=== PATIENT | female | born 2000 | race African-American/Black ===

== ENCOUNTER 2021-10-09 15:57 | Emergency (ER) | payer OTHER ==
[~2021-10-09] VITALS: Ht 157.5 cm; Wt 66.0 kg
[2021-10-09 16:03] VITALS: BP 150/87
[2021-10-09] MEDS ORDERED: ACETAMINOPHEN 325MG TABLET PO ONE (18:15)
[2021-10-09 19:21] LABS: BASOPHILS % 0.5 % (0.0-2.0); CHLORIDE 107 mEq/L (98-107); HEMATOCRIT. 38.5 % (36.0-48.0); HEMOGLOBIN. 12.3 g/dL (12.0-16.0); LYMPHOCYTES % 19.3 % (20.0-50.0); MEAN CORPUSCULAR HEMOGLOBIN 27.3 pg (28.0-32.0); MEAN CORPUSCULAR VOLUME 85.8 fL (81.0-99.0); MEAN PLATELET VOLUME 8.8 fl (7.4-10.4); MONOCYTES % 7.9 % (2.0-8.0); NEUTROPHILS % 71.3 % (40.0-76.0); PLATELET 319 x1000/uL (130-400); RED BLOOD CELL COUNT 4.49 mill/uL (4.2-5.4); RED CELL DISTRIBUTION WIDTH 14.7 % (11.6-14.6)
[2021-10-09 19:23] LABS: CLARITY URINE CLEAR (CLEAR); COLOR URINE YELLOW (YELLOW); KETONES URINE TRACE (NEGATIVE); LEUKOCYTE ESTERASE URINE 2+ (NEGATIVE); NITRITE URINE NEGATIVE (NEGATIVE); OCCULT BLOOD URINE NEGATIVE (NEGATIVE); PH URINE 6.5 (4.5-8.0); PROTEIN URINE NEGATIVE (NEGATIVE)
[2021-10-09 19:32] LABS: HCG SCREEN NEGATIVE
[2021-10-09] MEDS ORDERED: IBUP-2028 MT (20:19)
[2021-10-09] MEDS ORDERED: NITR-87 MT (20:19)
== END 2021-10-09 20:39 | disposition home or self-care (01) ==
LOC: ER 15:57
DX: R10.32 Left lower quadrant pain (principal); N39.0 Urinary tract infection, site not specified; J45.909 Unspecified asthma, uncomplicated; R51.9 Headache, unspecified; M54.2 Cervicalgia
CPT/HCPCS: 36415; 74176; 80053; 81003; 81025; 84703; 85025; 99284

== ENCOUNTER 2021-11-23 12:16 | Emergency (ER) | payer OTHER ==
[~2021-11-23] VITALS: Ht 157.5 cm; Wt 64.0 kg
[~2021-11-23 12:16] MED LIST: IBUP-2028 MT; NITR-87 MT
[2021-11-23 12:21] VITALS: BP 127/83
[2021-11-23] MEDS ORDERED: KETOROLAC 30MG/ML VIAL IV STA (13:03)
[2021-11-23] MEDS ORDERED: ONDANSETRON HCL 4MG/2ML INJ IV STA (13:03)
[2021-11-23] MEDS ORDERED: SODIUM CHLORIDE 0.9% 1,000 ML IV ONE (13:15)
[2021-11-23 13:56] LABS: CLARITY URINE CLEAR (CLEAR); COLOR URINE YELLOW (YELLOW); KETONES URINE TRACE (NEGATIVE); LEUKOCYTE ESTERASE URINE 2+ (NEGATIVE); NITRITE URINE NEGATIVE (NEGATIVE); OCCULT BLOOD URINE TRACE (NEGATIVE); PROTEIN URINE TRACE (NEGATIVE); SPECIFIC GRAVITY URINE 1.023 (1.005-1.030)
[2021-11-23 14:16] LABS: BASOPHILS % 0.8 % (0.0-2.0); EOSINOPHILS % 1.1 % (0.0-5.0); HEMATOCRIT. 36.9 % (36.0-48.0); HEMOGLOBIN. 12.2 g/dL (12.0-16.0); LYMPHOCYTES % 18.3 % (20.0-50.0); MEAN CORPUSCULAR HEMOGLOBIN 27.9 pg (28.0-32.0); MEAN CORPUSCULAR VOLUME 84.3 fL (81.0-99.0); MONOCYTES % 7.2 % (2.0-8.0); NEUTROPHILS % 72.6 % (40.0-76.0); PLATELET 356 x1000/uL (130-400); RED BLOOD CELL COUNT 4.38 mill/uL (4.2-5.4); RED CELL DISTRIBUTION WIDTH 15.7 % (11.6-14.6)
[2021-11-23 14:21] LABS: CHLORIDE 110 mEq/L (98-107)
[2021-11-23] MEDS ORDERED: CEFTRIAXONE 1 G PREMIX 50 ML IV NR (14:30)
[2021-11-23 14:37] LABS: HCG SCREEN NEGATIVE
[2021-11-23] MEDS ORDERED: CEPH500C2 MT (14:57)
== END 2021-11-23 15:53 | disposition home or self-care (01) ==
LOC: ER 12:16
DX: N10 Acute pyelonephritis (principal); R00.0 Tachycardia, unspecified; J45.909 Unspecified asthma, uncomplicated
CPT/HCPCS: 36415; 80053; 81003; 81025; 83690; 84703; 85025; 87086; 96361; 96365; 96375; 99284; J0696; J1885; J2405; J7030

== ENCOUNTER 2021-12-18 15:11 | Emergency (ER) | payer OTHER ==
[~2021-12-18] VITALS: Ht 160 cm; Wt 66.0 kg
[~2021-12-18 15:11] MED LIST changes: +CEPH500C2 MT
[2021-12-18 15:23] VITALS: BP 124/88
[2021-12-18] MEDS ORDERED: ACETAMINOPHEN 325MG TABLET PO ONE (18:30)
[2021-12-18] MEDS ORDERED: ACET-2708 MT (19:48)
== END 2021-12-18 20:11 | disposition home or self-care (01) ==
LOC: ER 15:11
DX: S06.0X9A Concussion with loss of consciousness of unspecified duration, initial encounter (principal); J45.909 Unspecified asthma, uncomplicated; Z13.9 Encounter for screening, unspecified; Y04.0XXA Assault by unarmed brawl or fight, initial encounter; Y93.89 Activity, other specified; Y92.89 Other specified places as the place of occurrence of the external cause; Y99.8 Other external cause status
CPT/HCPCS: 99284

== ENCOUNTER 2021-12-22 09:47 | Emergency (ER) | payer OTHER ==
[~2021-12-22 09:47] MED LIST changes: +ACET-2708 MT
== END 2021-12-22 10:11 | disposition home or self-care (01) ==
LOC: ER 09:47
DX: Z53.21 Procedure and treatment not carried out due to patient leaving prior to being seen by health care provider (principal)

== ENCOUNTER 2022-03-28 10:19 | Emergency (ER) | payer OTHER ==
[~2022-03-28] VITALS: Ht 162.6 cm; Wt 68.0 kg
[2022-03-28] MEDS ORDERED: ALBUTEROL (0.083%) 2.5MG/3ML NEB HHN STA (11:21)
[2022-03-28] MEDS ORDERED: PREDNISONE 20MG TABLET PO STA (11:21)
[2022-03-28] MEDS ORDERED: ALBU6.7H3 INH (12:04)
[2022-03-28] MEDS ORDERED: NEBU-270 MC (12:04)
[2022-03-28] MEDS ORDERED: P50 MT (12:04)
[2022-03-28] MEDS ORDERED: ALBU05 NEB (12:04)
[2022-03-28] MEDS ORDERED: ALBUTEROL (0.083%) 2.5MG/3ML NEB HHN NR (13:00)
[2022-03-28 13:47] VITALS: BP 136/76
== END 2022-03-28 13:51 | disposition home or self-care (01) ==
LOC: ER 10:19
DX: J45.909 Unspecified asthma, uncomplicated (principal); Z79.899 Other long term (current) drug therapy
CPT/HCPCS: 71045; 94640; 99283; J7512; Z7610

== ENCOUNTER 2022-07-02 23:55 | Emergency (ER) | payer OTHER ==
[~2022-07-02] VITALS: Ht 162.6 cm; Wt 63.5 kg
[~2022-07-02 23:55] MED LIST changes: +ALBU05 NEB; +ALBU6.7H3 INH; +NEBU-270 MC; +P50 MT
[2022-07-03 00:09] VITALS: BP 126/86
== END 2022-07-03 01:57 | disposition home or self-care (01) ==
LOC: ER 23:55
DX: F32.9 Major depressive disorder, single episode, unspecified (principal); J45.909 Unspecified asthma, uncomplicated; Z79.899 Other long term (current) drug therapy
CPT/HCPCS: 99281

== ENCOUNTER 2022-09-30 16:26 | Emergency (ER) | payer OTHER ==
[~2022-09-30] VITALS: Ht 162.6 cm; Wt 65.0 kg
[2022-09-30 16:32] VITALS: BP 117/66; PULSE 98; RESP 18; TEMP 98.6; O2SAT 99
[2022-09-30] MEDS ORDERED: IBUPROFEN 600MG TABLET PO ONE (17:15)
[2022-09-30] MEDS ORDERED: IBUP-2030 MT (18:48)
== END 2022-09-30 19:02 | disposition home or self-care (01) ==
LOC: ER 16:26
DX: M79.10 Myalgia, unspecified site (principal); R07.89 Other chest pain; J45.909 Unspecified asthma, uncomplicated
CPT/HCPCS: 99282

== ENCOUNTER 2022-11-16 12:28 | Emergency (ER) | payer OTHER ==
[~2022-11-16] VITALS: Ht 157.5 cm; Wt 58.0 kg
[~2022-11-16 12:28] MED LIST changes: +IBUP-2030 MT
[2022-11-16 12:36] VITALS: BP 120/74; PULSE 68; RESP 20; TEMP 98.6; O2SAT 100
[2022-11-16 13:40] LABS: BASOPHILS % 0.7 % (0.0-2.0); HEMATOCRIT. 38.2 % (36.0-48.0); HEMOGLOBIN. 12.3 g/dL (12.0-16.0); LYMPHOCYTES % 22.2 % (20.0-50.0); MEAN CORPUSCULAR HEMOGLOBIN 27.3 pg (28.0-32.0); MEAN CORPUSCULAR HGB CONC 32.2 g/dL (31.0-37.0); MEAN CORPUSCULAR VOLUME 84.9 fL (81.0-99.0); MEAN PLATELET VOLUME 8.7 fl (7.4-10.4); MONOCYTES % 6.4 % (2.0-8.0); NEUTROPHILS % 69.7 % (40.0-76.0); PLATELET 289 x1000/uL (130-400); RED CELL DISTRIBUTION WIDTH 14.2 % (11.6-14.6); WHITE BLOOD COUNT 8.3 x1000/uL (4.5-11.0)
[2022-11-16 13:49] LABS: CHLORIDE 107 mEq/L (98-107); INDEX HEMOLYSI 1 (1-3); INDEX ICTERIC 1 (1-4); INDEX LIPEMIC 1 (1-3); POTASSIUM 3.7 mEq/L (3.5-5.1); SODIUM 137 mEq/L (136-145)
[2022-11-16 13:57] LABS: ALANINE AMINOTRANSFERASE 14 IU/L (13-61); ALBUMIN 2.9 g/dL (3.4-5.0); ASPARTATE AMINOTRANSFERASE 14 IU/L (15-37); BILIRUBIN TOTAL 0.3 mg/dL (0.1-1.0); CARBON DIOXIDE 25 mEq/L (21-32); CREATININE 0.8 mg/dL (0.6-1.3); PROTEIN TOTAL 6.8 g/dL (6.0-8.3); UREA NITROGEN BLOOD 10 mg/dL (7-21)
[2022-11-16 15:05] LABS: GLUCOSE 89 mg/dL (70-105)
== END 2022-11-16 15:35 | disposition home or self-care (01) ==
LOC: ER 12:32
DX: R11.10 Vomiting, unspecified (principal)
CPT/HCPCS: 36415; 80053; 81025; 85025; 99283

== ENCOUNTER 2023-01-02 13:32 | Emergency (ER) | payer OTHER ==
[~2023-01-02] VITALS: Ht 160 cm; Wt 66.0 kg
[2023-01-02 13:46] VITALS: O2SAT 100
[2023-01-02 14:17] LABS: BASOPHILS % 0.3 % (0.0-2.0); EOSINOPHILS % 0.2 % (0.0-5.0); HEMATOCRIT. 33.8 % (36.0-48.0); HEMOGLOBIN. 11.1 g/dL (12.0-16.0); LYMPHOCYTES % 11.8 % (20.0-50.0); MEAN CORPUSCULAR HEMOGLOBIN 28.2 pg (28.0-32.0); MEAN CORPUSCULAR HGB CONC 32.8 g/dL (31.0-37.0); MEAN CORPUSCULAR VOLUME 85.8 fL (81.0-99.0); NEUTROPHILS % 81.7 % (40.0-76.0); PLATELET 279 x1000/uL (130-400); RED BLOOD CELL COUNT 3.94 mill/uL (4.2-5.4); RED CELL DISTRIBUTION WIDTH 15.1 % (11.6-14.6); WHITE BLOOD COUNT 10.6 x1000/uL (4.5-11.0)
[2023-01-02 14:42] LABS: CHLORIDE 106 mEq/L (98-107); HCG SCREEN POSITIVE; INDEX HEMOLYSI 1 (1-3); INDEX ICTERIC 1 (1-4); INDEX LIPEMIC 1 (1-3); POTASSIUM 3.7 mEq/L (3.5-5.1); SODIUM 135 mEq/L (136-145)
[2023-01-02 14:54] LABS: ALANINE AMINOTRANSFERASE 13 IU/L (13-61); ALBUMIN 2.8 g/dL (3.4-5.0); ASPARTATE AMINOTRANSFERASE 16 IU/L (15-37); BILIRUBIN TOTAL 0.4 mg/dL (0.1-1.0); CARBON DIOXIDE 21 mEq/L (21-32); CREATININE 0.5 mg/dL (0.6-1.3); GLUCOSE 89 mg/dL (70-105); PROTEIN TOTAL 6.8 g/dL (6.0-8.3); UREA NITROGEN BLOOD 9 mg/dL (7-21)
[2023-01-02 15:44] LABS: CLARITY URINE TURBID (CLEAR); COLOR URINE DARK YELLOW (YELLOW); GLUCOSE URINE NEGATIVE (NEGATIVE); KETONES URINE 3+ (NEGATIVE); LEUKOCYTE ESTERASE URINE 2+ (NEGATIVE); NITRITE URINE NEGATIVE (NEGATIVE); OCCULT BLOOD URINE 3+ (NEGATIVE); PROTEIN URINE 3+ (NEGATIVE); SPECIFIC GRAVITY URINE 1.021 (1.005-1.030)
[2023-01-02 16:14] LABS: CALCIUM 8.6 mg/dL (8.5-10.1)
[2023-01-02 17:06] LABS: BACTERIA URINE 3+; RBC URINE TNTC /hpf (0-2); SQUAMOUS EPITHELIAL CELL URINE 1+ /lpf (RARE/1+)
[2023-01-02] MEDS ORDERED: ACETAMINOPHEN 325MG TABLET PO PRN (19:45)
[2023-01-02] MEDS ORDERED: TOPUD MT (21:25)
[2023-01-02] MEDS ORDERED: CEPH500C2 MT (21:25)
[2023-01-02] MEDS ORDERED: ACETAMINOPHEN 160 MG/5 ML UD CUP PO ONE (21:30)
[2023-01-02 21:45] VITALS: BP 120/75; PULSE 72; RESP 20; TEMP 98.6
[2023-01-02] MEDS ORDERED: ACETAMINOPHEN 160MG/5ML UDC PO NR (22:00)
== END 2023-01-02 21:50 | disposition home or self-care (01) ==
LOC: ER 14:21
DX: O23.41 Unspecified infection of urinary tract in pregnancy, first trimester (principal); Z3A.11 11 weeks gestation of pregnancy
CPT/HCPCS: 36415; 76801; 80053; 81003; 81025; 84702; 84703; 85025; 99284

== ENCOUNTER 2023-01-06 10:35 | Emergency (ER) | payer OTHER ==
[~2023-01-06] VITALS: Ht 162.6 cm; Wt 60.8 kg
[~2023-01-06 10:35] MED LIST changes: +TOPUD MT
[2023-01-06 10:41] VITALS: O2SAT 100
[2023-01-06] MEDS ORDERED: CEPH500T MT (10:59)
[2023-01-06] MEDS ORDERED: ACETAMINOPHEN 650MG/20.3ML UDC PO ONE (11:00)
[2023-01-06] MEDS ORDERED: CEFTRIAXONE SODIUM 1 G/VIAL IM ONE (11:00)
[2023-01-06] MEDS ORDERED: ACET-2084 MT (11:00)
[2023-01-06 13:51] VITALS: BP 129/66; PULSE 79; RESP 20; TEMP 98.1
== END 2023-01-06 13:52 | disposition home or self-care (01) ==
LOC: ER 10:35
DX: O26.891 Other specified pregnancy related conditions, first trimester (principal); Z76.0 Encounter for issue of repeat prescription; Z3A.13 13 weeks gestation of pregnancy
CPT/HCPCS: 99281; J0696; Z7610

== ENCOUNTER 2023-03-07 09:49 | Emergency (ER) | payer OTHER ==
[~2023-03-07] VITALS: Ht 162.6 cm; Wt 57.0 kg
[~2023-03-07 09:49] MED LIST changes: +ACET-2084 MT; +CEPH500T MT
[2023-03-07 10:15] VITALS: O2SAT 100
[2023-03-07] MEDS ORDERED: ONDANSETRON HCL 4MG/2ML INJ IV ONE (10:30)
[2023-03-07 11:00] LABS: HEMATOCRIT. 30.9 % (36.0-48.0); HEMOGLOBIN. 9.9 g/dL (12.0-16.0); MEAN CORPUSCULAR HEMOGLOBIN 28.9 pg (28.0-32.0); MEAN CORPUSCULAR HGB CONC 31.9 g/dL (31.0-37.0); MEAN CORPUSCULAR VOLUME 90.5 fL (81.0-99.0); MEAN PLATELET VOLUME 8.5 fl (7.4-10.4); PLATELET 302 x1000/uL (130-400); RED BLOOD CELL COUNT 3.41 mill/uL (4.2-5.4); RED CELL DISTRIBUTION WIDTH 15.1 % (11.6-14.6); WHITE BLOOD COUNT 11.6 x1000/uL (4.5-11.0)
[2023-03-07] MEDS ORDERED: MORPHINE SULFATE 4 MG/ML CPJ (NOT FOR IM USE) IV ONE (11:00)
[2023-03-07 11:19] LABS: ALANINE AMINOTRANSFERASE 18 IU/L (10-49); ALBUMIN 3.4 g/dL (3.2-4.8); ASPARTATE AMINOTRANSFERASE 31 IU/L (<34); B-HCG QUANTITATIVE 43518 mIU/mL (<3); BILIRUBIN TOTAL 0.5 mg/dL (0.1-1.0); CALCIUM 8.8 mg/dL (8.7-10.4); CARBON DIOXIDE 23 mEq/L (21-32); CHLORIDE 106 mEq/L (98-107); CREATININE 0.5 mg/dL (0.6-1.0); GLUCOSE 82 mg/dL (70-105); POTASSIUM 3.6 mEq/L (3.5-5.1); PROTEIN TOTAL 6.5 g/dL (6.0-8.3); SODIUM 137 mEq/L (136-145); UREA NITROGEN BLOOD 5 mg/dL (9-23)
[2023-03-07 11:24] LABS: CLARITY URINE TURBID (CLEAR); COLOR URINE RED (YELLOW); GLUCOSE URINE NEGATIVE (NEGATIVE); KETONES URINE 3+ (NEGATIVE); LEUKOCYTE ESTERASE URINE 2+ (NEGATIVE); NITRITE URINE POSITIVE (NEGATIVE); OCCULT BLOOD URINE 2+ (NEGATIVE); PH URINE 6.5 (4.5-8.0); PROTEIN URINE 3+ (NEGATIVE); SPECIFIC GRAVITY URINE 1.023 (1.005-1.030)
[2023-03-07] MEDS ORDERED: CEFTRIAXONE 1GM PREMIX 50 ML IV ONE (11:30)
[2023-03-07 11:36] LABS: DIFFERENTIAL COMMENT 1
[2023-03-07 12:05] LABS: RBC URINE TNTC /hpf (0-2); WBC URINE 15-25 /hpf (0-2)
[2023-03-07 12:06] LABS: BACTERIA URINE 1+; SQUAMOUS EPITHELIAL CELL URINE NONE SEEN /lpf (RARE/1+)
[2023-03-07 12:20] VITALS: BP 117/70; PULSE 87; RESP 16; TEMP 98.2
[2023-03-07 12:39] LABS: PLATELET ESTIMATE NORMAL
== END 2023-03-07 13:05 | disposition home or self-care (01) ==
LOC: ER 13:05
DX: O99.891 Other specified diseases and conditions complicating pregnancy (principal); O99.012 Anemia complicating pregnancy, second trimester; O99.512 Diseases of the respiratory system complicating pregnancy, second trimester; N10 Acute pyelonephritis; R11.2 Nausea with vomiting, unspecified; Z3A.22 22 weeks gestation of pregnancy
CPT/HCPCS: 80053; 81003; 84702; 85025; 86850; 86900; 86901; 87040; 87086; 87186; 87077; 36415; 76815; 96374; 96375; 99285; J2405; J2270; Z7610